=== PATIENT | male | born 1985 | race African-American/Black ===

== ENCOUNTER 2021-01-09 12:29 | Emergency (ER) | payer BC, OTHER ==
[~2021-01-09] VITALS: Ht 167.6 cm; Wt 68.5 kg
[2021-01-09 13:14] VITALS: BP 114/63
== END 2021-01-09 14:12 | disposition home or self-care (01) ==
LOC: ER 12:29
DX: S00.03XA Contusion of scalp, initial encounter (principal); F12.10 Cannabis abuse, uncomplicated; Z88.6 Allergy status to analgesic agent; Z88.8 Allergy status to other drugs, medicaments and biological substances; W22.8XXA Striking against or struck by other objects, initial encounter; Y93.89 Activity, other specified; Y92.89 Other specified places as the place of occurrence of the external cause; Y99.8 Other external cause status
CPT/HCPCS: 70450